=== PATIENT | male | born 1960 | race Caucasian/White ===

== ENCOUNTER 2018-06-26 15:53 | Emergency (ER) | payer SELFPAY ==
[2018-06-26 15:54] VITALS: BP 170/94; PULSE 96; RESP 16; TEMP 37.2; O2SAT 95; BMI 46.7
--- NOTE | 2018-06-26 16:12 | ED.VISSUMM ---
- ER Visit Summary Date of Service: 06/26/18 Chief Complaint: Dysuria History of Present Illness: The patient is a 57 M presenting with dysuria. Patient states his symptoms started 2-3 days ago. He has dysuria, urgency, frequency. He denies incontinence. He denies hematuria. Denies back pain, numbness or weakness. He has mild suprapubic abdominal pain. He went to urgent care today and was sent to the ED for further evaluation. Physical Examination: Vitals are stable. Temperature 99. Alert no acute distress. HEENT exam is unremarkable. Neck is supple. Lungs are clear and equal bilaterally. Heart is regular rate and rhythm. Abdomen is soft nontender nondistended. No rebound or guarding. Back: Nontender Extremities are unremarkable. Skin is warm and dry. No focal neurologic deficit. Remainder of exam is unremarkable. Emergency Department Course and Treatment: CBC shows white count 16.0. Chemistries show glucose 374. Patient admits to noncompliant diet today. Urinalysis shows 5-10 white blood cells, positive leukocytes and nitrites. He is advised to follow a diabetic diet. He is given a prescription for Keflex. Urine culture was sent. He is advised to follow-up with his primary care physician. Advised signs and symptoms for which to return to the emergency department. Disposition: Discharge home Impression: UTI This note was generated with myseekit dictation software. It may contain incorrect words, spelling, and punctuation that were not noted in review of the chart prior to signing ED Disposition - Plan for ED Patient: Chief Complaint: Complaint Instructions: ED UTI Cystitis Male Prescriptions: Cephalexin [Keflex] 500 mg PO BID #14 capsule Referrals: Austyn Mcdonough [Primary Care Provider] -
[2018-06-26 16:15] LABS: Mucous, Urine 0 SEEN /hpf (<or=2+)
[2018-06-26 16:18] LABS: Color, Urine Yellow (Yellow); Glucose, Dipstick 1000 mg/dl (Normal); Ketone-Dipstick 5 mg/dl (Negative); Leukocyte Esterase-Dipstick 25 /ul (Negative); Nitrite-Dipstick Positive (Negative); Occult Blood-Urine 50 /ul (Negative); Protein-Dipstick 30 mg/dl (Negative); Specific Gravity, Urine 1.015 (1.002-1.030); Urine Bilirubin Dipstick Negative (Negative); Urine Clarity Cloudy (Clear); Urine Urobilinogen 1 mg/dl (Normal)
[2018-06-26 16:34] LABS: Absolute Neutrophil Count 12.9 X10^3/uL (2.0-7.7); Basophil# 0.03 X10^3/uL; Basophil% 0.2 % (0-1); Eosinophil# 0.11 X10^3/uL; Eosinophils% 0.7 % (0-5); Hematocrit 37.9 % (40-54); Hemoglobin 12.5 g/dl (13.0-16.5); Lymphocyte % 12.5 % (19-41); Mean Corpuscular Hgb 27.7 pg (27.0-32.0); Monocyte# 0.97 X10^3/uL; Monocyte% 6.1 % (0-10); Neutrophil # 12.85 X10^3/uL (2.7-7.7); Neutrophil % 80.4 % (47-70); Platelet Count 263 K/mm3 (150-450); RBC Distribution Width CV 14.8 % (11.6-14.6); RBC Distribution Width SD 45.4 fl (35.1-43.9); Red Blood Count 4.51 M/mm3 (4.6-6.2)
[2018-06-26 16:38] LABS: POSITIVE COUNT NO; POSITIVE DIFFERENTIAL NO; POSITIVE MORPHOLOGY NO
[2018-06-26 16:40] LABS: Squamous Epithelial Cells - UA 0-5 SEEN /hpf (0-5)
[2018-06-26 16:41] LABS: Bacteria 2+ /hpf (None Seen); Red Blood Cells-Urine 0-5 SEEN /hpf (0-5)
[2018-06-26 16:42] LABS: White Blood Cells 5-10 SEEN /hpf (0-5)
[2018-06-26 16:48] LABS: Anion Gap 6 (5-15); BUN 10 mg/dL (7-18); BUN/Creat Ratio 10.2 RATIO (10-20); Calcium,Total 8.6 mg/dL (8.5-10.1); Chloride 97 mmol/L (98-107); Creatinine, Serum 0.98 mg/dL (0.70-1.30); EST Glomerular Filtration Rate 84 mL/min (>60); Est Glom Filt Rate - Afr Amer 102 mL/min (>60); Estimated Creatinine Clearance 87.94 ml/min; Glucose 374 mg/dL (74-106); Potassium 3.3 mmol/L (3.5-5.1); Sodium Level 135 mmol/L (136-145)
--- NOTE | 2018-06-26 16:57 | ED.DEP ---
ED Disposition - Plan for ED Patient: Chief Complaint: Complaint Instructions: ED UTI Cystitis Male Prescriptions: Cephalexin [Keflex] 500 mg PO BID #14 capsule Referrals: Austyn Mcdonough [Primary Care Provider] -
[2018-06-26 17:05] VITALS: BP 162/80; PULSE 85; RESP 14; O2SAT 98
[2018-06-26] MEDS: Cephalexin 250 MG Capsule 500 MG PO (17:10)
== END 2018-06-26 17:12 | disposition home or self-care (01) ==
PROVIDERS: Emergency Provider Emergency Medicine; Family Provider Student in an Organized Health Care Education/Training Program; PCP Student in an Organized Health Care Education/Training Program
DX: N39.0 Urinary tract infection, site not specified (principal); E11.9 Type 2 diabetes mellitus without complications; I10 Essential (primary) hypertension; Z91.11 Patient's noncompliance with dietary regimen; Z72.0 Tobacco use
CPT/HCPCS: 80048; 81001; 85025; 87077; 87086; 87088; 87186; 99284; A4216

== ENCOUNTER 2025-01-01 04:37 | Inpatient (IN) | payer SELFPAY ==
[2025-01-01] VITALS (15 sets, daily range): BP systolic 163–198; BP diastolic 71–92; PULSE 73–108; RESP 20–36; TEMP 36.8–37.9; O2SAT 82–96; BMI 58.6
[2025-01-01 05:10] LABS: Absolute Lymphocyte Count 0.83 X10^3/uL (0.83-4.51); Absolute Neutrophil Count 14.2 X10^3/uL (2.0-7.7); Basophil# 0.08 X10^3/uL; Basophil% 0.5 % (0-1); Eosinophil# 0.03 X10^3/uL; Eosinophils% 0.2 % (0-5); Hematocrit 41.8 % (40-54); Hemoglobin 13.7 g/dL (13.0-16.5); Lymphocyte # 0.83 X10^3/ul (0.83-4.51); Mean Corp Hgb Conc 32.8 g/dL (32-36); Mean Corpuscular Hgb 27.5 pg (27.0-32.0); Mean Corpuscular Volume 83.8 fL (80-94); Mean Platelet Vol. 10.2 fl (6.2-12.0); Monocyte# 1.27 X10^3/uL; Monocyte% 7.7 % (0-10); NRBC Flagged by Analyzer 0 % (0-5); Neutrophil # 14.15 X10^3/uL (2.7-7.7); Neutrophil % 86.1 % (47-70); Platelet Count 317 K/mm3 (150-450); RBC Distribution Width CV 14.9 % (11.6-14.6); RBC Distribution Width SD 45.2 fl (35.1-43.9); Red Blood Count 4.99 M/mm3 (4.6-6.2); White Blood Count 16.5 K/mm3 (4.4-11.0)
[2025-01-01] MEDS: Acetaminophen 500 MG Tablet 1000 MG PO (05:11)
[2025-01-01] MEDS: MethylPREDNISolone 125 MG/2 ML Vial IV (05:11)
[2025-01-01] MEDS: Ipratropium/Albuterol Sulfate 3 ML AMPUL.NEB INHALATION ×4 (05:18→20:10)
[2025-01-01] MEDS: Albuterol 2.5 MG/3 ML VIAL.NEB. INHALATION (05:18)
[2025-01-01 05:25] LABS: Anion Gap 10 (5-15); BUN 11 mg/dL (7-18); BUN/Creat Ratio 13.3 RATIO (10-20); Calcium,Total 9.3 mg/dL (8.5-10.1); Chloride 94 mmol/L (98-107); Creatinine, Serum 0.83 mg/dL (0.70-1.30); EST Glomerular Filtration Rate 100 mL/min (>60); Est Glom Filt Rate - Afr Amer 121 mL/min (>60); Glucose 320 mg/dL (74-106); Magnesium 1.8 mg/dL (1.6-2.6); Potassium 3.1 mmol/L (3.5-5.1); Sodium Level 134 mmol/L (136-145)
--- NOTE | 2025-01-01 05:34 | RAD_ITS ---
PROCEDURE: Portable upright chest radiograph, one view REASON FOR EXAM: Dyspnea. Shortness of breath, dizziness, cough TECHNIQUE: A single AP upright chest radiograph was obtained. COMPARISON: None. FINDINGS: The cardiomediastinal silhouette is within normal limits. Bones are osteopenic. [id number] degenerative changes of the glenohumeral joints. No pneumothorax, focal airspace consolidation, or pleural effusion. Some slight fullness of the right hilum may be questionable vague opacity at the left lung base. There is some subjective fullness of the right hilum. RAD/Chest 1 View (Portable) IMPRESSION: Questionable vague opacity at the left lung base, which could be due to develop ing pneumonia or artifactual from superimposition of the cardiac silhouette. There is also subjective fullness of the right hilu m. Recommend a follow-up PA and lateral chest radiograph in 1 week. Reading Location: [facility]
--- NOTE | 2025-01-01 05:40 | EX.ED.DYSGE1 ---
HPI History of Present Illness Chief Complaint: Shortness of Breath Informant: patient, spouse/S.O. and EMS Narrative Narrative: Patient is a 64-year-old male with past medical history of COPD but no need for supplemental oxygen at baseline as well as hypertension and qxy-kbafdxb-kaolakeqm diabetes. He states for approximately 3 days he has been having congestion drainage and cough. He does report multiple sick contacts at home with similar symptoms. He states this morning his shortness of breath worsened and secondary to this EMS was called. EMS reports when they arrived patient was awake and alert but had increased work of breathing and his pulse ox was approximately 80% on room air. [facility] Medical History Sleep apnea Hypertension Diabetes Home Medications ?Medication ?Instructions ?Recorded ?Last Taken ?Type alfuzosin 10 mg tablet,extended 10 mg PO QHS 01/01/25 Unknown History release 24 hr amlodipine 5 mg tablet 5 mg PO DAILY 01/01/25 Unknown History carvedilol 6.25 mg tablet 6.25 mg PO BID 01/01/25 Unknown History fluticasone fur. 100 mcg-umeclid 1 inh inhalation DAILY 01/01/25 Unknown History 62.5 mcg-vilant 25 mcg inhalat.powder (Trelegy Ellipta) furosemide 20 mg tablet 20 mg PO DAILY 01/01/25 Unknown History lisinopril 20 1 tab PO BID 01/01/25 Unknown History mg-hydrochlorothiazide 12.5 mg tablet metformin 1,000 mg tablet 1,000 mg PO BID 01/01/25 Unknown History potassium 20 mg chewable tablet 10 mg PO DAILY 01/01/25 Unknown History Allergy/AdvReac Type Severity Reaction Status Date / Time No Known Allergies Allergy Verified 01/01/25 04:38 Social History Smoking Status: Current every day smoker tobacco type: cigarettes ROS ROS ED Constitutional Constitutional ED: Reports chills and fever(s) ENT ENT ED: Reports ear pain bilateral, rhinorrhea and sore throat Cardiovascular Cardiovascular: Denies chest pain or palpitations Respiratory/Chest Respiratory/Chest: Reports cough and dyspnea Gastrointestinal Gastrointestinal: Denies abdominal pain, diarrhea, nausea or vomiting Genitourinary Genitourinary ED: Denies dysuria Musculoskeletal Musculoskeletal: Reports myalgias Integumentary Denies rash Neurologic Neurologic: Denies headache(s) Hematologic/Lymphatic Hematologic/Lymphatic: Denies easy bleeding or easy bruising Allergic/Immunologic Allergic/Immunologic ED: Denies mouth swelling or tongue swelling EXAM Physical Exam Const Vital Signs: 01/01/25 04:37 01/01/25 04:38 01/01/25 04:41 Temperature 100.3 F H 100.3 F H Temperature Source Oral Oral Pulse Rate 108 H 105 H Respiratory Rate 28 H 26 H Respiratory Pattern Blood Pressure 196/92 H 196/92 H Blood Pressure Mean 126 126 Pulse Ox 82 90 90 Oxygen Delivery Method Room Air Nasal Cannula Nasal Cannula Oxygen Flow Rate (L/min) 4 4 01/01/25 04:51 01/01/25 05:18 01/01/25 05:18 Temperature Temperature Source Pulse Rate 98 Respiratory Rate 24 H Respiratory Pattern Tachypnea Blood Pressure Blood Pressure Mean Pulse Ox 93 Oxygen Delivery Method Nasal Cannula Nasal Cannula Oxygen Flow Rate (L/min) 2 3 01/01/25 06:05 01/01/25 06:05 01/01/25 06:36 Temperature 99.6 F H 99.6 F H 99.6 F H Temperature Source Oral Oral Pulse Rate 100 100 102 H Respiratory Rate 36 H 35 H 28 H Respiratory Pattern Blood Pressure 191/83 H 191/83 H 179/86 H Blood Pressure Mean 119 119 117 Pulse Ox 89 89 96 Oxygen Delivery Method Nasal Cannula Nasal Cannula Oxygen Flow Rate (L/min) 4 4 01/01/25 07:15 Temperature 99.1 F Temperature Source Oral Pulse Rate 95 Respiratory Rate 24 H Respiratory Pattern Blood Pressure 182/88 H Blood Pressure Mean 119 Pulse Ox 93 Oxygen Delivery Method Nasal Cannula Oxygen Flow Rate (L/min) Positive well nourished, well developed and obese General Appearance ED: well developed; Negative for pallor Nutritional Appearance: obese HEENT HEENT Narrative: Bilateral TMs are retracted but show no secondary changes to suggest infection Nasal mucosa is hyperemic and boggy There is cobblestoning noted in posterior pharynx consistent with sinus drainage but no airway edema or compromise Eyes PERRL and EOMs intact bilaterally General Eye ED: Negative for scleral icterus Neck supple and no JVD Resp Resp Narrative: Patient is in mild respiratory distress with tachypnea and accessory muscle use Breath sounds are diminished throughout with diffuse inspiratory and expiratory wheezing Cardio regular rhythm Rate: tachycardic and other Other Details: Tachycardic rate with regular rhythm Radial and carotid pulses are equal and symmetric Extremity normal to inspection Extremity Narrative: No pitting edema Negative Homans' sign bilaterally Neuro oriented x3, CN's II-XII intact bilaterally and no sensory deficits noted Sensorium / Orientation: alert Motor Exam: strength 5/5 throughout Psych mental status grossly normal Skin no rashes or lesions noted General Skin Exam: Negative for jaundice or pallor MDM MDM MDM Narrative Medical decision making narrative: EMS reported they arrived at the patient's house and his pulse ox was 80% on room air. Patient has a history of COPD but no need for supplemental oxygen at baseline. With his reported sick contacts there is high likelihood this is influenza versus COVID versus RSV. Patient may also have potential pneumonia or pneumothorax causing his symptoms. Secondary to this basic blood work was obtained as well as chest x-ray and viral swab. Viral swab was positive for influenza. Chest x-ray question developing pneumonia but at this is truly present is most likely viral in nature based on his influenza status. Therefore do not feel need for antibiotics at this time the patient will be started on Tamiflu secondary to the influenza diagnosis. The patient is requiring 3 to 4 L nasal cannula oxygen to keep his sats greater than 90%. As he does not have oxygen at home it is not safe for him to be discharged and therefore the hospitalist was contacted and agrees to accept the patient for continued care. History & Record Review Discussion w/independent historian: Patient Lab Data Attestation: I reviewed the patient's lab results. Labs: Laboratory Results - last 24 hr 01/01/25 04:50 WBC 16.5 H RBC 4.99 Hgb 13.7 Hct 41.8 MCV 83.8 MCH 27.5 MCHC 32.8 RDW Std Deviation 45.2 H RDW Coeff of Silvano 14.9 H Plt Count 317 MPV 10.2 Immature Gran % (Auto) 0.500 Neut % (Auto) 86.1 H Lymph % (Auto) 5.0 L [place] % (Auto) 7.7 Eos % (Auto) 0.2 Baso % (Auto) 0.5 Absolute Neuts (auto) 14.2 H Absolute Lymphs (auto) 0.83 Nucleated RBC % 0 Sodium 134 L Potassium 3.1 L Chloride 94 L Carbon Dioxide 31.0 Anion Gap 10 BUN 11 Creatinine 0.83 Estim Creat Clear Calc 149.40 Est GFR (MDRD) Af Amer 121 Est GFR (MDRD) Non-Af 100 BUN/Creatinine Ratio 13.3 Glucose 320 H Calcium 9.3 Magnesium 1.8 B-Natriuretic Peptide 80.6 Radiography Diagnostic Testing: Clinical Impression(s) from Imaging Studies Chest X-Ray 01/01/25 05:34 IMPRESSION: Questionable vague opacity at the left lung base, which could be due to developing pneumonia or artifactual from superimposition of the cardiac silhouette. There is also subjective fullness of the right hilum. Recommend a follow-up PA and lateral chest radiograph in 1 week. Reading Location: [facility] Chest x-ray as interpreted by the emergency medicine physician reveals vague opacities in the bilateral lung bases consistent with atelectasis without obvious infiltrate or pneumothorax Management Discussion w/another healthcare provider: Hospitalist Discharge Plan Triage Chief Complaint: Shortness of Breath ED Provider: Chago Balderas Dx/Rx/DC Orders Clinical Impression: Influenza A, COPD with acute exacerbation, Hypoxia, Hypertension, Type 2 diabetes mellitus Prescriptions: No Action carvedilol 6.25 mg tablet 6.25 mg PO BID amlodipine 5 mg tablet 5 mg PO DAILY furosemide 20 mg tablet 20 mg PO DAILY potassium 20 mg tablet,chewable 10 mg PO DAILY alfuzosin 10 mg tablet extended release 24 hr 10 mg PO QHS metformin 1,000 mg tablet 1,000 mg PO BID lisinopril-hydrochlorothiazide 20-12.5 mg tablet 1 tab PO BID Trelegy Ellipta 100-62.5-25 mcg blister with device 1 inh inhalation DAILY Primary Care Provider: Austyn Mcdonough Referrals: Austyn Mcdonough DO [Primary Care Provider] - Print Language: [place] Disposition Disposition: Acute Care Hospital [facility]
[2025-01-01 05:44] LABS: BNP,B-Type NATRIURETIC PEPTIDE 80.6 pg/mL (0-100)
[2025-01-01] MEDS: Oseltamivir Phosphate 75 MG Capsule PO ×2 (07:29→21:24)
--- NOTE | 2025-01-01 07:35 | PCM.HP.STD ---
[facility] - General General Date of Service: 01/01/25 Chief Complaint: shortness of breath. [facility] Narrative SAUL DIETRICH, is a 64 M who presents with shortness of breath. Patient been sick for about 2 to 3 days prior to arrival. He had checked his oxygen at home and it was noted to be 80% and so presented to the emergency room. On emergency room he underwent a workup that showed he had influenza A. He was placed on oxygen and received bronchodilators as well as methylprednisolone. With him having influenza he did receive start oseltamavir. He is feeling better at this time. He does have a history of COPD and does actively smoke. But not normally on oxygen at home. [facility] Medical History Sleep apnea Hypertension Diabetes Home Medications ?Medication ?Instructions ?Recorded ?Last Taken ?Type alfuzosin 10 mg tablet,extended 10 mg PO QHS 01/01/25 Unknown History release 24 hr amlodipine 5 mg tablet 5 mg PO DAILY 01/01/25 Unknown History carvedilol 6.25 mg tablet 6.25 mg PO BID 01/01/25 Unknown History fluticasone fur. 100 mcg-umeclid 1 inh inhalation DAILY 01/01/25 Unknown History 62.5 mcg-vilant 25 mcg inhalat.powder (Trelegy Ellipta) furosemide 20 mg tablet 20 mg PO DAILY 01/01/25 Unknown History lisinopril 20 1 tab PO BID 01/01/25 Unknown History mg-hydrochlorothiazide 12.5 mg tablet metformin 1,000 mg tablet 1,000 mg PO BID 01/01/25 Unknown History potassium 20 mg chewable tablet 10 mg PO DAILY 01/01/25 Unknown History Allergy/AdvReac Type Severity Reaction Status Date / Time No Known Allergies Allergy Verified 01/01/25 04:38 Social History (Updated 01/01/25 @ 07:[address] Enrique Metcalf DO) Smoking Status: Current every day smoker tobacco type: cigarettes substance use type: does not use Vital Signs Vital Signs Vital Signs: 01/01/25 04:37 01/01/25 04:38 01/01/25 04:41 Temperature 37.9 C H 37.9 C H Temperature Source Oral Oral Pulse Rate 108 H 105 H Respiratory Rate 28 H 26 H Respiratory Pattern Blood Pressure 196/92 H 196/92 H Blood Pressure Mean 126 126 Pulse Ox 82 90 90 Oxygen Delivery Method Room Air Nasal Cannula Nasal Cannula Oxygen Flow Rate (L/min) 4 4 01/01/25 04:51 01/01/25 05:18 01/01/25 05:18 Temperature Temperature Source Pulse Rate 98 Respiratory Rate 24 H Respiratory Pattern Tachypnea Blood Pressure Blood Pressure Mean Pulse Ox 93 Oxygen Delivery Method Nasal Cannula Nasal Cannula Oxygen Flow Rate (L/min) 2 3 01/01/25 06:05 01/01/25 06:05 01/01/25 06:36 Temperature 37.6 C H 37.6 C H 37.6 C H Temperature Source Oral Oral Pulse Rate 100 100 102 H Respiratory Rate 36 H 35 H 28 H Respiratory Pattern Blood Pressure 191/83 H 191/83 H 179/86 H Blood Pressure Mean 119 119 117 Pulse Ox 89 89 96 Oxygen Delivery Method Nasal Cannula Nasal Cannula Oxygen Flow Rate (L/min) 4 4 01/01/25 07:15 Temperature 37.3 C Temperature Source Oral Pulse Rate 95 Respiratory Rate 24 H Respiratory Pattern Blood Pressure 182/88 H Blood Pressure Mean 119 Pulse Ox 93 Oxygen Delivery Method Nasal Cannula Oxygen Flow Rate (L/min) Weight Weight: 180.1 kg Body Mass Index (BMI) 58.6 Physical Exam Narrative - Physical Exam General: Alert, Oriented x3, Cooperative HEENT: Atraumatic, PERRLA, EOMI, Normocephalic Oral: Moist Mucosa, No Gingival or Mucosal Lesions/ Ulcerations Neck: Supple, No JVD, Negative Carotid Bruits Lungs: Diminished breath sounds throughout. Faint end expiratory wheezes. Cardiovascular: Regular rate, Normal S1, Normal S2, No murmurs Abdomen: Bowel Sounds Present, Soft, Non Tender, Non-Distended, No Hepato-splenomegaly Extremities: No clubbing, No cyanosis, No edema, Capillary Refill Less than 3 Seconds Skin: No rashes, No breakdown Musculoskeletal: No Tenderness to Palpation of Joints or Extremities Neurological: Neuro grossly intact Psych/Mental Status: Normal Affect, Appropriate Results Lab / Micro Data Attestation: I reviewed the patient's lab results. 01/01/25 04:50 01/01/25 04:50 Labs: Laboratory Results - last 24 hr 01/01/25 04:50: WBC 16.5 H, RBC 4.99, Hgb 13.7, Hct 41.8, MCV 83.8, MCH 27.5, MCHC 32.8, RDW Std Deviation 45.2 H, RDW Coeff of Silvano 14.9 H, Plt Count 317, MPV 10.2, Immature Gran % (Auto) 0.500, Neut % (Auto) 86.1 H, Lymph % (Auto) 5.0 L, [place] % (Auto) 7.7, Eos % (Auto) 0.2, Baso % (Auto) 0.5, Absolute Neuts (auto) 14.2 H, Absolute Lymphs (auto) 0.83, Nucleated RBC % 0, Sodium 134 L, Potassium 3.1 L, Chloride 94 L, Carbon Dioxide 31.0, Anion Gap 10, BUN 11, Creatinine 0.83, Estim Creat Clear Calc 149.40, Est GFR (MDRD) Af Amer 121, Est GFR (MDRD) Non-Af 100, BUN/Creatinine Ratio 13.3, Glucose 320 H, Calcium 9.3, Magnesium 1.8, B-Natriuretic Peptide 80.6 Micro: Microbiology 01/01/25 04:50 Mucosa - Nose SARS-CoV-2, Influenza & RSV (PCR) - Final Influenzae A Imaging Radiology Impression Chest X-Ray 01/01/25 05:34 IMPRESSION: Questionable vague opacity at the left lung base, which could be due to developing pneumonia or artifactual from superimposition of the cardiac silhouette. There is also subjective fullness of the right hilum. Recommend a follow-up PA and lateral chest radiograph in 1 week. Reading [facility] Assessment & Plan Assessment/Plan (1) COPD exacerbation: PLAN: Secondary to influenza A Continue bronchodilators and methylprednisolone. Wean oxygen as tolerated (2) Influenza A: PLAN: Patient received oseltamavir in the emergency room. Will continue on the floor. PLAN: Plan Diabetes mellitus type 2: Nondistended. Continue with metformin. Sliding scale insulin. Check an A1c. Obesity class III: Complicates care and recovery. VTE prophylaxis with enoxaparin. CODE STATUS: Addressed with patient. Patient wishes to be full code Charges/Coding Visit Charges Inpatient E&M: 78431 Init Hosp L3
[2025-01-01] MEDS: Carvedilol 6.25 MG Tablet PO ×2 (11:00→17:01)
[2025-01-01] MEDS: Furosemide 20 MG Tablet PO (11:02)
[2025-01-01] MEDS: Potassium Chloride Oral Tablet 10 MEQ PO (11:02)
[2025-01-01] MEDS: metFORMIN HCl 1,000 MG Tablet 1000 MG PO ×2 (11:02→21:23)
[2025-01-01] MEDS: amLODIPine 5 MG Tablet PO (11:03)
[2025-01-01] MEDS: Enoxaparin 40 MG/0.4 ML Syringe SC ×2 (11:03→21:23)
[2025-01-01] MEDS: Insulin Lispro 100 UNIT/ML INSULN.PEN SC ×3 (12:00→22:47)
[2025-01-01 12:22] LABS: Bedside Glucose 439 mg/dL (74-106)
[2025-01-01] MEDS: 0.9% Saline Lock 10 ML Syringe IV (13:29)
[2025-01-01] MEDS: Tamsulosin HCl 0.4 MG Capsule PO (17:01)
[2025-01-01 17:27] LABS: Bedside Glucose 487 mg/dL (74-106)
--- NOTE | 2025-01-01 19:50 | NURSING ---
This nurse to patients room with pharmacist in charge, rental car ferry driver just took a call from patients patient requesting a breathing treatment states he called out at 6pm 630 and 7pm for a treatment. rental car ferry driver called respiratory. This nurse explained we just got here at 7pm and got out of report at 730 no one instructed us he needed a breathing treatment. Patient upset said he has called several times. Patient also sitting up at computer chair with no 02 in his nose. I placed back on 02 and instructed how important it is to keep it on when he is ambulating in the room. He states he took it off over by the window and that was his fault. Respiratory on their way up to give patient a treatment. spo2 88% when entering the room 93% on 5l n/c now.
[2025-01-01] MEDS: LISINOPRIL PO (20:22)
[2025-01-01] MEDS: HYDROCHLOROTHIAZIDE PO (20:22)
[2025-01-01] MEDS: Insulin Glargine-YFGN 100 UNIT/ML Pen 30 UNIT SC (22:48)
[2025-01-01 23:30] LABS: Bedside Glucose 479 mg/dL (74-106)
[2025-01-01 23:43] LABS: Glucose 530 mg/dL (74-106)
[2025-01-02] VITALS (13 sets, daily range): BP systolic 170–185; BP diastolic 90–104; PULSE 92–101; RESP 16–28; TEMP 36.6–37.2; O2SAT 93–95
[2025-01-02] MEDS: Ipratropium/Albuterol Sulfate 3 ML AMPUL.NEB INHALATION ×6 (00:04→20:30)
[2025-01-02 06:12] LABS: Absolute Lymphocyte Count 0.87 X10^3/uL (0.83-4.51); Absolute Neutrophil Count 14.3 X10^3/uL (2.0-7.7); Basophil# 0.03 X10^3/uL; Basophil% 0.2 % (0-1); Eosinophil# 1.37 X10^3/uL; Eosinophils% 7.9 % (0-5); Hematocrit 41.8 % (40-54); Hemoglobin 13.4 g/dL (13.0-16.5); Lymphocyte # 0.87 X10^3/ul (0.83-4.51); Mean Corp Hgb Conc 32.1 g/dL (32-36); Mean Corpuscular Hgb 26.9 pg (27.0-32.0); Mean Corpuscular Volume 83.9 fL (80-94); Mean Platelet Vol. 10.6 fl (6.2-12.0); Monocyte# 0.71 X10^3/uL; Monocyte% 4.1 % (0-10); NRBC Flagged by Analyzer 0 % (0-5); Neutrophil # 14.28 X10^3/uL (2.7-7.7); Neutrophil % 81.7 % (47-70); POSITIVE MORPHOLOGY YES; Platelet Count 400 K/mm3 (150-450); RBC Distribution Width CV 15.2 % (11.6-14.6); RBC Distribution Width SD 45.9 fl (35.1-43.9); Red Blood Count 4.98 M/mm3 (4.6-6.2); White Blood Count 17.5 K/mm3 (4.4-11.0)
[2025-01-02 06:56] LABS: Anion Gap 12 (5-15); BUN 26 mg/dL (7-18); BUN/Creat Ratio 24.3 RATIO (10-20); Calcium,Total 9.3 mg/dL (8.5-10.1); Chloride 95 mmol/L (98-107); Creatinine, Serum 1.07 mg/dL (0.70-1.30); EST Glomerular Filtration Rate 74 mL/min (>60); Est Glom Filt Rate - Afr Amer 90 mL/min (>60); Estimated Creatinine Clearance 115.89 ml/min; Glucose 487 mg/dL (74-106); Potassium 3.6 mmol/L (3.5-5.1); Sodium Level 132 mmol/L (136-145)
[2025-01-02] MEDS: Insulin Lispro 100 UNIT/ML INSULN.PEN SC ×4 (07:00→21:51)
[2025-01-02 07:08] LABS: Bedside Glucose 499 mg/dL (74-106)
[2025-01-02 07:36] LABS: Differential Indicated SCAN CRITERIA MET
[2025-01-02] MEDS: Insulin Lispro 100 UNIT/ML INSULN.PEN 10 UNIT SC ×2 (08:23→11:02)
[2025-01-02] MEDS: Insulin Glargine-YFGN 100 UNIT/ML Pen 20 UNIT SC ×2 (08:25→21:54)
[2025-01-02] MEDS: Carvedilol 6.25 MG Tablet PO ×2 (08:29→17:50)
[2025-01-02] MEDS: Insulin Lispro 100 UNIT/ML INSULN.PEN 15 UNIT SC ×2 (09:15→17:47)
[2025-01-02 09:17] LABS: Hemoglobin A1c 11.6 % (3.8-5.6)
--- NOTE | 2025-01-02 10:11 | CASEMGMT ---
Addendum entered by Teodora Levy 01/02/25 10:22: FERNY AGUAYO discussed possible O2 needs at time of DC, provided list of local DME providers. Pt chose [facility] as provider of choice. Original Note: FERNY AGUAYO Assessment: Face to Face with pt for initial transition planning/care coordination assessment. FERNY AGUAYO introduced self and role at [facility], pt voices understanding and consents to assessment. Pt is A&O x4 and answers all questions appropriately at this time. Pt is sitting up in bed in no distress. Care providers, pharmacy, and demographics verified/updated. Strata: 2 Admitting Dx: COPD exacerbation PCP: [facility] Specialists: [facility] Preferred Pharmacy: [facility] Insurance: Self Pay Prescription Benefit: yes LNOK: [place], Living Arrangements: Pt lives with , daughter and grandchild in a rancho home with 3 steps to enter. ADLs: Pt is I with ADLs, assistance with cleaning. Transportation: Pt drives self and denies concerns with transportation. DME: [employer] and supplies. HHC/SNF: Denies Hx of. Pt states no concerns with going home at time of dc. Pt states no further concerns/needs. CM to follow. Advised pt to ask CM if any further question/concerns/needs arise, voices understanding. Pt Goal: Home Plan: Home, follow for O2 needs. Nicolette ISAACS CM
[2025-01-02] MEDS: Potassium Chloride Oral Tablet 10 MEQ PO (10:50)
[2025-01-02] MEDS: Furosemide 20 MG Tablet PO (10:51)
[2025-01-02] MEDS: Enoxaparin 40 MG/0.4 ML Syringe SC ×2 (10:51→21:42)
[2025-01-02] MEDS: amLODIPine 5 MG Tablet PO (10:51)
[2025-01-02] MEDS: Oseltamivir Phosphate 75 MG Capsule PO ×2 (10:51→21:45)
[2025-01-02] MEDS: LISINOPRIL PO ×2 (10:52→21:42)
[2025-01-02] MEDS: HYDROCHLOROTHIAZIDE PO ×2 (10:52→21:42)
[2025-01-02 11:25] LABS: Bedside Glucose 439 mg/dL (74-106)
--- NOTE | 2025-01-02 12:21 | PCM.PN.HOSP ---
Reason for Visit Reason for Visit: Diagnoses Influenza due to other identified influenza virus with other respiratory manifestations (01/01/25) Chronic obstructive pulmonary disease with (acute) exacerbation (01/01/25) Subjective Subjective Saw patient at bedside this morning. Patient was mildly fatigued appearing but otherwise sitting up comfortably at the edge of the bed, conversing normally and in no acute distress. He was breathing comfortably on 6 L nasal cannula. Noted that he still felt wheezing and short of breath with minimal exertion. Does feel moderately improved from admission. Has been able to cough some sputum up which is better than previous days. Denies any fevers or chills. No other new concerns this morning. Objective Data Objective Data Vital Signs: Vital Signs Temp Pulse Resp BP Pulse Ox O2 Del Method O2 Flow Rate 98.4 F 101 H 24 H 185/99 H 93 Nasal Cannula 5 01/02/25 08:13 01/02/25 11:06 01/02/25 11:06 01/02/25 08:13 01/02/25 08:13 01/02/25 08:18 01/02/25 08:18 Oxygen Flow Rate (L/min) 5 Oxygen Delivery Method Nasal Cannula Weight: 180.1 kg Body Mass Index (BMI) 58.6 Intake & Output: Intake and Output for Last 24 Hours 12/31/24 01/01/25 01/02/25 23:59 23:59 23:59 Intake Total 780 / 1230 800 / 800 Balance 780 / 1230 800 / 800 Lab / Micro Data 01/02/25 05:35 01/02/25 05:35 Labs: Laboratory Results - last 24 hr 01/01/25 11:59: POC Glucose 439 H 01/01/25 16:18: POC Glucose 487 H* 01/01/25 21:27: POC Glucose 479 H* 01/01/25 22:48: Glucose 530 H* 01/02/25 05:35: WBC 17.5 H, RBC 4.98, Hgb 13.4, Hct 41.8, MCV 83.9, MCH 26.9 L, MCHC 32.1, RDW Std Deviation 45.9 H, RDW Coeff of Silvano 15.2 H, Plt Count 400, MPV 10.6, Immature Gran % (Auto) 1.100 H, Neut % (Auto) 81.7 H, Lymph % (Auto) 5.0 L, [place] % (Auto) 4.1, Eos % (Auto) 7.9 H, Baso % (Auto) 0.2, Absolute Neuts (auto) 14.3 H, Absolute Lymphs (auto) 0.87, Nucleated RBC % 0, Sodium 132 L, Potassium 3.6, Chloride 95 L, Carbon Dioxide 26.0, Anion Gap 12, BUN 26 H, Creatinine 1.07, Estim Creat Clear Calc 115.89, Est GFR (MDRD) Af Amer 90, Est GFR (MDRD) Non-Af 74, BUN/Creatinine Ratio 24.3 H, Glucose 487 H*, Hemoglobin A1c 11.6 H, Calcium 9.3 01/02/25 05:51: POC Glucose 499 H* 01/02/25 11:00: POC Glucose 439 H Micro: Microbiology 01/01/25 04:50 Mucosa - Nose SARS-CoV-2, Influenza & RSV (PCR) - Final Influenzae A Physical Exam Const alert, oriented x3 and no apparent distress Constitutional Narrative: Upper middle-aged male, class III obesity, mildly fatigued appearing but otherwise sitting up at edge of bed comfortably, conversing normally, in no acute distress. General Appearance: cooperative and comfortable HEENT normocephalic, head/scalp atraumatic, hearing grossly normal bilaterally, nasal mucous membranes and turbinates normal and moist oral mucous membranes Eyes PERRL, EOMs intact bilaterally and conjunctivae normal Neck full ROM Chest inspection of chest normal Resp normal respiratory effort and no use of accessory muscles Resp Narrative: Breathing comfortably on 6 L nasal cannula at rest. Moderately diminished breath sounds with moderate upper airway wheezing noted bilaterally. No crackles noted. Cardio regular rate, regular rhythm, no murmurs and peripheral pulses 2+ throughout GI normal to inspection, nondistended, normoactive bowel sounds, soft to palpation, non-tender and non-distended Back/Spine normal ROM Extremity normal to inspection, full ROM and no pedal edema Skin no rashes or lesions noted Neuro moves all extremities and no focal motor deficits Speech: speech normal Motor Exam: strength 5/5 throughout Psych mental status grossly normal Assessment & Plan Assessment/Plan (1) Acute hypoxic respiratory failure: (2) COPD exacerbation: (3) Influenza A: (4) Type 2 diabetes mellitus: PLAN: Plan Patient is a 64-year-old male who presented [facility] ED on 01/01/2025 with worsening shortness of breath. 1. Acute hypoxic respiratory failure secondary to COPD exacerbation due to influenza A infection ? Influenza A positive on admit. History of COPD, not on home O2. Chest x-ray on admit unremarkable. Diffusely wheezy on exam on admit and requiring 6 L nasal cannula to maintain appropriate oxygen saturations. Low concern for secondary bacterial pneumonia. Continue treatment with IV steroids, scheduled DuoNebs and Tamiflu. Wean supplemental oxygen as able. Continue home long-acting inhaler. 2. Poorly controlled type 2 diabetes mellitus ? Blood glucose 500 on admit. A1c 11.6%. Only on home metformin. Blood sugars very elevated since admission especially while on IV steroids. Treating with Lantus 20 units twice daily, Humalog 15 units with meals plus high-dose sliding scale insulin, adjust as needed. 3. Class III obesity ? BMI 58 on admit. Encouraged lifestyle modifications. Complicates hospital course, care and prognosis. 4. Hypertension ? Blood pressure elevated to the 160s to 180s during hospitalization. Continue home amlodipine, Coreg, Lasix, lisinopril, hydrochlorothiazide. IV hydralazine as needed ordered as well. 5. Tobacco use ? Nicotine patch ordered per patient request. Discussed cessation. 6. Suspected VERONICA ? Continue CPAP at night. DVT prophylaxis: Lovenox twice daily CODE STATUS: Full code, verified Expected disposition: Home, TBD Total clinical time spent by myself addressing the patient's medical issues, reviewing all the data, and collaborating with patient's care team: 35 minutes. Charges/Coding Visit Charges Inpatient E&M: 60523 Subs Hosp L2
[2025-01-02] MEDS: 0.9% Saline Lock 10 ML Syringe IV (15:10)
[2025-01-02] MEDS: hydrALAZINE 20 MG/ML Vial 10 MG IV (15:42)
[2025-01-02 16:36] LABS: Bedside Glucose 344 mg/dL (74-106)
[2025-01-02] MEDS: Tamsulosin HCl 0.4 MG Capsule PO (17:50)
[2025-01-02 22:15] LABS: Bedside Glucose 390 mg/dL (74-106)
[2025-01-03] VITALS (10 sets, daily range): BP systolic 155–192; BP diastolic 82–105; PULSE 75–92; RESP 18–24; TEMP 36.7–37; O2SAT 91–96
[2025-01-03] MEDS: Ipratropium/Albuterol Sulfate 3 ML AMPUL.NEB INHALATION ×6 (00:11→23:03)
[2025-01-03 06:36] LABS: Hemoglobin 13.6 g/dL (13.0-16.5); Mean Corp Hgb Conc 31.6 g/dL (32-36); Mean Corpuscular Hgb 26.6 pg (27.0-32.0); Mean Corpuscular Volume 84.1 fL (80-94); Mean Platelet Vol. 10.1 fl (6.2-12.0); Platelet Count 407 K/mm3 (150-450); RBC Distribution Width CV 15.1 % (11.6-14.6); RBC Distribution Width SD 46.3 fl (35.1-43.9); Red Blood Count 5.11 M/mm3 (4.6-6.2); White Blood Count 16.9 K/mm3 (4.4-11.0)
[2025-01-03] MEDS: Insulin Lispro 100 UNIT/ML INSULN.PEN 20 UNIT SC (08:07)
[2025-01-03] MEDS: Insulin Lispro 100 UNIT/ML INSULN.PEN SC ×3 (08:07→21:01)
[2025-01-03] MEDS: Carvedilol 25 MG Tablet PO ×2 (08:07→17:15)
[2025-01-03 08:11] LABS: Bedside Glucose 406 mg/dL (74-106)
[2025-01-03] MEDS: Insulin Glargine-YFGN 100 UNIT/ML Pen 20 UNIT SC (09:51)
[2025-01-03] MEDS: Potassium Chloride Oral Tablet 10 MEQ PO (09:51)
[2025-01-03] MEDS: Enoxaparin 40 MG/0.4 ML Syringe SC ×2 (09:52→20:54)
[2025-01-03] MEDS: Furosemide 40 MG Tablet PO (09:52)
[2025-01-03] MEDS: amLODIPine 5 MG Tablet PO (09:53)
[2025-01-03] MEDS: HYDROCHLOROTHIAZIDE PO ×2 (09:55→20:55)
[2025-01-03] MEDS: Oseltamivir Phosphate 75 MG Capsule PO ×2 (09:55→20:55)
[2025-01-03] MEDS: LISINOPRIL PO ×2 (09:55→20:55)
--- NOTE | 2025-01-03 10:41 | CASEMGMT ---
Addendum entered by Tracy Fry 01/03/25 11:32: [employer] rep, Alejandra, reports that pt is over-income per pt information provided. JESSENIA Sorto Original Note: Social Work- SW met with pt to discuss self pay status. SW introduced self and role. Pt reports he is uncertain if he is over income for [employer] and would like to meet with [employer] product representative. SE completed referral. SW provided printed resources for prescription programs, [employer] card, as well as HCAP form for financial assistance. Pt denies any other needs at this time. SW remains available to follow. JESSENIA Sorto
--- NOTE | 2025-01-03 10:55 | PCM.PN.HOSP ---
Reason for Visit Reason for Visit: Diagnoses Type 2 diabetes mellitus without complications (01/01/25) Influenza due to other identified influenza virus with other respiratory manifestations (01/01/25) Chronic obstructive pulmonary disease with (acute) exacerbation (01/01/25) Acute respiratory failure with hypoxia (01/01/25) Subjective Subjective Saw patient at bedside this morning, present. Patient did appear mild to moderately improved today from yesterday. Better energy level. Does continue to have significant shortness of breath with exertion and wheezing at rest. States the breathing treatments have been helpful for him. No other new concerns today. Objective Data Objective Data Vital Signs: Vital Signs Temp Pulse Resp BP Pulse Ox O2 Del Method O2 Flow Rate 98.2 F 91 18 192/105 H 94 Nasal Cannula 4 01/03/25 07:54 01/03/25 07:54 01/03/25 07:54 01/03/25 07:54 01/03/25 07:54 01/03/25 07:57 01/03/25 07:57 Oxygen Flow Rate (L/min) 4 Oxygen Delivery Method Nasal Cannula Weight: 180.1 kg Body Mass Index (BMI) 58.6 Intake & Output: Intake and Output for Last 24 Hours 01/01/25 01/02/25 01/03/25 23:59 23:59 23:59 Intake Total 780 / 1230 800 / 800 200 / 200 Balance 780 / 1230 800 / 800 200 / 200 Lab / Micro Data 01/03/25 05:10 01/03/25 05:10 Labs: Laboratory Results - last 24 hr 01/02/25 11:00: POC Glucose 439 H 01/02/25 16:17: POC Glucose 344 H 01/02/25 21:50: POC Glucose 390 H 01/03/25 05:10: WBC 16.9 H, RBC 5.11, Hgb 13.6, Hct 43.0, MCV 84.1, MCH 26.6 L, MCHC 31.6 L, RDW Std Deviation 46.3 H, RDW Coeff of Silvano 15.1 H, Plt Count 407, MPV 10.1 01/03/25 07:50: POC Glucose 406 H Micro: Microbiology 01/01/25 04:50 Mucosa - Nose SARS-CoV-2, Influenza & RSV (PCR) - Final Influenzae A Physical Exam Const alert, oriented x3 and no apparent distress Constitutional Narrative: Upper middle-aged male, class III obesity, mildly fatigued appearing but otherwise sitting up at edge of bed comfortably, conversing normally, in no acute distress. Stable. General Appearance: cooperative and comfortable HEENT normocephalic, head/scalp atraumatic, hearing grossly normal bilaterally, nasal mucous membranes and turbinates normal and moist oral mucous membranes Eyes PERRL, EOMs intact bilaterally and conjunctivae normal Neck full ROM Chest inspection of chest normal Resp normal respiratory effort and no use of accessory muscles Resp Narrative: Breathing comfortably on 3 L nasal cannula at rest. Mild to moderate upper airway wheezing noted bilaterally with mild diminished breath sounds, but no crackles noted. Improving. Cardio regular rate, regular rhythm, no murmurs and peripheral pulses 2+ throughout GI normal to inspection, nondistended, normoactive bowel sounds, soft to palpation, non-tender and non-distended Back/Spine normal ROM Extremity normal to inspection, full ROM and no pedal edema Skin no rashes or lesions noted Neuro moves all extremities and no focal motor deficits Speech: speech normal Motor Exam: strength 5/5 throughout Psych mental status grossly normal Assessment & Plan Assessment/Plan (1) Acute hypoxic respiratory failure: (2) COPD exacerbation: (3) Influenza A: (4) Type 2 diabetes mellitus: PLAN: Plan Patient is a 64-year-old male who presented [facility] ED on 01/01/2025 with worsening shortness of breath. 1. Acute hypoxic respiratory failure secondary to COPD exacerbation due to influenza A infection ? Influenza A positive on admit. History of COPD, not on home O2. Chest x-ray on admit unremarkable. Diffusely wheezy on exam on admit and requiring 6 L nasal cannula to maintain appropriate oxygen saturations. Low concern for secondary bacterial pneumonia. Continue treatment with IV steroids, scheduled DuoNebs and Tamiflu. Wean supplemental oxygen as able. Will plan to de-escalate to p.o. steroids and DuoNebs as needed tomorrow and complete O2 ambulatory testing tomorrow in preparation for discharge home. Suspect patient will need supplemental oxygen on discharge. Continue home inhalers. 2. Poorly controlled type 2 diabetes mellitus ? Blood glucose 500 on admit. A1c 11.6%. Was reportedly only on home metformin but on further discussion with patient and on 01/03, he is taking Lantus 60 units at night and Humalog 25 units with meals. Blood sugars have remained high while on steroids, increased to Lantus 30 units twice daily and Humalog 30 units plus sliding scale insulin for now, adjust as needed. Should be okay to resume home regimen on discharge. 3. Class III obesity ? BMI 58 on admit. Encouraged lifestyle modifications. Complicates hospital course, care and prognosis. 4. Hypertension ? Blood pressure elevated to the 160s to 180s during hospitalization. Increased doses of home Coreg and Lasix on 01/03 with some improvement. Continue home amlodipine, lisinopril and hydrochlorothiazide. IV hydralazine as needed ordered as well. 5. Tobacco use ? Nicotine patch ordered per patient request. Discussed cessation. 6. Suspected VERONICA ? Continue CPAP at night. DVT prophylaxis: Lovenox twice daily CODE STATUS: Full code, verified Expected disposition: Home, 1 to 2 days Total clinical time spent by myself addressing the patient's medical issues, reviewing all the data, and collaborating with patient's care team: 35 minutes. Charges/Coding Visit Charges Inpatient E&M: 02591 Subs Hosp L2
[2025-01-03 11:16] LABS: Anion Gap 8 (5-15); BUN 27 mg/dL (7-18); BUN/Creat Ratio 30.9 RATIO (10-20); Calcium,Total 9.3 mg/dL (8.5-10.1); Chloride 96 mmol/L (98-107); Creatinine, Serum 0.87 mg/dL (0.70-1.30); EST Glomerular Filtration Rate 94 mL/min (>60); Est Glom Filt Rate - Afr Amer 114 mL/min (>60); Estimated Creatinine Clearance 142.53 ml/min; Glucose 376 mg/dL (74-106); Potassium 3.7 mmol/L (3.5-5.1); Sodium Level 135 mmol/L (136-145)
[2025-01-03] MEDS: Insulin Lispro 100 UNIT/ML INSULN.PEN 30 UNIT SC ×2 (12:10→17:13)
[2025-01-03 12:12] LABS: Bedside Glucose 431 mg/dL (74-106)
--- NOTE | 2025-01-03 14:30 | CASEMGMT ---
FERNY AGUAYO into pt room, pt sitting on eob with and her son at bedside. Discussed with pt the potential need for home oxygen. Provided pt with a verbal list of local DME providers, pt chose [employer]. Discussed cost is $270 per month for concentrator and $35 per month per portable tank. Pt states this is affordable to him. Pt does have a pox at home as well as CPAP. FERNY AGUAYO to follow for oxygen. Pt denies any other homegoing needs at this time.
[2025-01-03] MEDS: Tamsulosin HCl 0.4 MG Capsule PO (17:20)
[2025-01-03 18:17] LABS: Bedside Glucose 248 mg/dL (74-106)
[2025-01-03] MEDS: 0.9% Saline Lock 10 ML Syringe IV (20:57)
[2025-01-03] MEDS: Insulin Glargine-YFGN 100 UNIT/ML Pen 30 UNIT SC (21:06)
[2025-01-03 21:30] LABS: Bedside Glucose 242 mg/dL (74-106)
[2025-01-04] VITALS (12 sets, daily range): BP systolic 162–189; BP diastolic 79–106; PULSE 72–99; RESP 18–20; TEMP 36.7–36.8; O2SAT 87–96
[2025-01-04] MEDS: Ipratropium/Albuterol Sulfate 3 ML AMPUL.NEB INHALATION ×3 (03:23→12:03)
[2025-01-04] MEDS: hydrALAZINE 20 MG/ML Vial 10 MG IV ×2 (05:03→11:02)
[2025-01-04] MEDS: 0.9% Saline Lock 10 ML Syringe IV (05:09)
[2025-01-04] MEDS: Insulin Lispro 100 UNIT/ML INSULN.PEN 30 UNIT SC ×2 (08:15→12:09)
[2025-01-04] MEDS: Insulin Lispro 100 UNIT/ML INSULN.PEN SC ×2 (08:15→12:09)
[2025-01-04] MEDS: Insulin Glargine-YFGN 100 UNIT/ML Pen 30 UNIT SC (08:16)
[2025-01-04] MEDS: Potassium Chloride Oral Tablet 10 MEQ PO (08:16)
[2025-01-04] MEDS: Carvedilol 25 MG Tablet PO (08:17)
[2025-01-04] MEDS: Furosemide 40 MG Tablet PO (08:17)
[2025-01-04] MEDS: predniSONE 20 MG Tablet 40 MG PO (08:18)
[2025-01-04] MEDS: Enoxaparin 40 MG/0.4 ML Syringe SC (08:19)
[2025-01-04] MEDS: HYDROCHLOROTHIAZIDE PO (08:20)
[2025-01-04] MEDS: LISINOPRIL PO (08:20)
[2025-01-04] MEDS: amLODIPine 10 MG Tablet PO (08:20)
[2025-01-04] MEDS: Oseltamivir Phosphate 75 MG Capsule PO (08:20)
[2025-01-04 08:42] LABS: Bedside Glucose 410 mg/dL (74-106)
--- NOTE | 2025-01-04 10:16 | CASEMGMT ---
Addendum entered by Alondra Stafford 01/04/25 14:05: Last meeting with pt was 1225, not 1247. Addendum entered by Alondra Stafford 01/04/25 14:05: 1247-FERNY AGUAYO into pt room, discussed homegoing oxygen with pt and what liter flow he qualified for as well as the liter flow for the cpap at HS. Pt verbalized understanding. Pt denies any further needs at this time. Pt expressed great satisfaction from this hospital stay. Addendum entered by Alondra Stafford 01/04/25 12:03: Respiratory updated that pt is using 6L bleed into pap. Updated hospitalist and updated order, sent to [facility] at this time. No order for overnight study. Original Note: Pt qualifies for home oxygen. Referral sent to [facility] via [facility] at this time. Updated hospitalist on pt O2 requirements for home.
--- NOTE | 2025-01-04 10:22 | DS.PCM_ITS ---
Providers Date of Admission: 01/01/25 Date of Discharge: 01/04/25 Primary Care Physician: Dr. Austyn Mcdonough DO Reason For Visit: COPD EXACERBATION Diagnosis Discharge Diagnosis (1) Acute hypoxic respiratory failure: Status: Acute Code(s): J96.01 - Acute respiratory failure with hypoxia (2) COPD exacerbation: Status: Chronic Code(s): J44.1 - Chronic obstructive pulmonary disease with (acute) exacerbation (3) Influenza A: Status: Acute Code(s): J10.1 - Influenza due to other identified influenza virus with other respiratory manifestations (4) Type 2 diabetes mellitus: Status: Acute Code(s): E11.9 - Type 2 diabetes mellitus without complications Medications at Discharge Home Medications alfuzosin 10 mg tablet,extended release 24 hr 10 mg PO QHS 01/01/25 amlodipine 5 mg tablet 5 mg PO DAILY 01/01/25 carvedilol 6.25 mg tablet 6.25 mg PO BID 01/01/25 fluticasone fur. 100 mcg-umeclid 62.5 mcg-vilant 25 mcg inhalat.powder (Trelegy Ellipta) 1 inh inhalation DAILY 01/01/25 furosemide 20 mg tablet 20 mg PO DAILY 01/01/25 lisinopril 20 mg-hydrochlorothiazide 12.5 mg tablet 1 tab PO BID 01/01/25 metformin 1,000 mg tablet 1,000 mg PO BID 01/01/25 potassium 20 mg chewable tablet 10 mg PO DAILY 01/01/25 ipratropium 0.5 mg-albuterol 3 mg (2.5 mg base)/3 mL nebulization soln 3 ml inhalation Q6H PRN shortness of breath or wheezing #90 mL 01/04/25 oseltamivir 75 mg capsule 75 mg PO BID 2 days #4 caps 01/04/25 prednisone 10 mg tablet See Taper PO DAILY 12 days #30 tabs 01/04/25 Hospital Course Operations None Procedures - (Chest x-ray) Summary of Care Provided Minutes Spent on Discharge: 35 Hospital Course: Patient is a 64-year-old male who presented [facility] ED on 01/01/2025 with worsening shortness of breath. Hospital course as noted below. Patient discharged home in stable condition on 01/04. 1. Acute hypoxic respiratory failure secondary to COPD exacerbation due to influenza A infection ? Influenza A positive on admit. History of COPD, not on home O2. Chest x-ray on admit unremarkable. Diffusely wheezy on exam on admit and requiring 6 L nasal cannula to maintain appropriate oxygen saturations. Low concern for secondary bacterial pneumonia. Treated with IV steroids, scheduled DuoNebs and Tamiflu while inpatient with improvement. Completed oxygen testing on day of discharge and did require 4 L with exertion but no oxygen at rest. Oxygen prescription sent. Discharged on short steroid taper and Tamiflu to complete course. Continue home inhalers on discharge. 2. Poorly controlled type 2 diabetes mellitus ? Blood glucose 500 on admit. A1c 11.6%. Was reportedly only on home metformin but on further discussion with patient and on 01/03, he is taking Lantus 60 units at night and Humalog 25 units with meals. Blood sugars remained high while inpatient while on steroids but did improve with increased insulin dosing. Recommend restarting home insulin dosing on discharge with sliding scale coverage as needed especially while on steroids. 3. Class III obesity ? BMI 58 on admit. Encouraged lifestyle modifications. Complicated hospital course, care and prognosis. 4. Hypertension ? Blood pressure elevated to the 160s to 180s during hospitalization. Increased home doses of Coreg and Lasix during hospitalization with some improvement. However, suspect blood pressures may have been elevated due to frequent DuoNeb treatments and steroids. Will discharge on home medications at home dosing. 5. Tobacco use ? Nicotine patch utilized inpatient per patient request. Discussed cessation on discharge. 6. Suspected VERONICA ? Continue CPAP at night. Total clinical time spent by myself addressing the patient's medical issues, reviewing all the data, and collaborating with patient's care team: 35 minutes. Physical Exam Const alert, oriented x3 and no apparent distress Constitutional Narrative: Upper middle-aged male, class III obesity, energy improved, sitting up at edge of bed comfortably, conversing normally, in no acute distress. Improved from admission. General Appearance: cooperative and comfortable HEENT normocephalic, head/scalp atraumatic, hearing grossly normal bilaterally, nasal mucous membranes and turbinates normal and moist oral mucous membranes Eyes PERRL, EOMs intact bilaterally and conjunctivae normal Neck full ROM Chest inspection of chest normal Resp normal respiratory effort and no use of accessory muscles Resp Narrative: Breathing comfortably on 2 L nasal cannula at rest. Mild upper airway wheezing noted bilaterally but improved from admission and breath sounds much improved. No crackles noted. Cardio regular rate, regular rhythm, no murmurs and peripheral pulses 2+ throughout GI normal to inspection, nondistended, normoactive bowel sounds, soft to palpation, non-tender and non-distended Back/Spine normal ROM Extremity normal to inspection, full ROM and no pedal edema Skin no rashes or lesions noted Neuro moves all extremities and no focal motor deficits Speech: speech normal Motor Exam: strength 5/5 throughout Psych mental status grossly normal Weight / BMI Weight Weight: 180.1 kg Body Mass Index (BMI) 58.6 ABG / Lab / Microbiology Data 01/03/25 05:10 01/03/25 05:10 Laboratory: Laboratory Results - last 24 hr 01/03/25 05:10: Sodium 135 L, Potassium 3.7, Chloride 96 L, Carbon Dioxide 31.0, Anion Gap 8, BUN 27 H, Creatinine 0.87, Estim Creat Clear Calc 142.53, Est GFR (MDRD) Af Amer 114, Est GFR (MDRD) Non-Af 94, BUN/Creatinine Ratio 30.9 H, G lucose 376 H, Calcium 9.3 01/03/25 11:53: POC Glucose 431 H 01/03/25 17:11: POC Glucose 248 H 01/03/25 20:52: POC Glucose 242 H 01/04/25 08:14: POC Glucose 410 H Microbiology: Microbiology 01/01/25 04:50 Mucosa - Nose SARS-CoV-2, Influenza & RSV (PCR) - Final Influenzae A D/C Instructions DC O2, CPAP, BIPAP Needs Home O2 Discharge instructions: Yes Type of respiratory needs?: Oxygen Oxygen frequency: With Ambulation Oxygen liters per minute during Ambulation: 4 DC home with Oxygen: Yes Home O2 MD Review: I have reviewed the oxygen testing, and the patient qualifies for home oxygen equipment and portability. The patient is mobile in the home and the community. Meaningful Use Info Meaningful Use Meaningful Use Diagnoses (Choose all that apply): None applicable Ischemic Stroke Statin Dosing Therapy Reference: STATIN DOSE THERAPY REFERENCE: * Patients > 75 years receive moderate or high dose statin therapy. * Patients 75 years or YOUNGER should receive HIGH intensity statin dose unless contraindicated. You will be required to document reason for non-treatment if statin daily dose does not meet guidelines. HIGH DOSE STATIN THERAPY DAILY Atorvastatin > than or = to 40 mg Rosuvastatin > than or = to 20 mg Amlodipine + Atorvastatin > than or = to 2.5/40 mg Ezetimibe + Simvastatin 10/80 mg Simvastatin 80mg Discharge Plan Admission Admit Date/Time: 01/01/25 07:27 Primary Reason for Your Visit: Shortness of breath Attending Provider: Kehinde Garibay Primary Care Provider: Austyn Mcdonough Consulting Providers: Enrique Metcalf Instructions Additional Instructions / Restrictions: Complete steroid taper as noted below. Complete 2 more days of Tamiflu. Use your home inhalers and the nebulizer solution below as needed. Continue your home blood pressure medications and home insulin. Follow-up with your primary care doctor as needed. Discharge Orders/Prescriptions Prescriptions: New oseltamivir 75 mg Capsule 75 mg PO BID 2 Days Qty: 4 0RF prednisone 10 mg tablet See Taper PO DAILY 12 Days Qty: 30 0RF Taper: Prednisone Taper 40 mg WITH BREAKFAST for 3 Days and 0 Hour 30 mg WITH BREAKFAST for 3 Days and 0 Hour 20 mg WITH BREAKFAST for 3 Days and 0 Hour 10 mg WITH BREAKFAST for 3 Days and 0 Hour ipratropium-albuterol 0.5 mg-3 mg(2.5 mg base)/3 mL solution for nebulization 3 ml inhalation Q6H PRN (Reason: shortness of breath or wheezing) Qty: 90 0RF Continued carvedilol 6.25 mg tablet 6.25 mg PO BID amlodipine 5 mg tablet 5 mg PO DAILY furosemide 20 mg tablet 20 mg PO DAILY potassium 20 mg tablet,chewable 10 mg PO DAILY alfuzosin 10 mg tablet extended release 24 hr 10 mg PO QHS metformin 1,000 mg tablet 1,000 mg PO BID lisinopril-hydrochlorothiazide 20-12.5 mg tablet 1 tab PO BID Trelegy Ellipta 100-62.5-25 mcg blister with device 1 inh inhalation DAILY Referrals / Follow Up: Austyn Mcdonough DO [Primary Care Provider] - Disposition Disposition (needs filled in before D/C Order can be placed): Home, Self Care Charges/Coding Visit Charges Inpatient E&M: 63975 Disch Hosp >30min
--- NOTE | 2025-01-04 10:22 | PCM.HOSP.N ---
Hospitalist Note I have reviewed the oxygen testing, and this patient qualifies for the home equipment and portability. The patient is mobile in the home and the community.
[2025-01-04 11:52] LABS: Bedside Glucose 374 mg/dL (74-106)
== END 2025-01-04 13:22 | disposition home or self-care (01) | DRG 193 ==
LOC: ED 07:34 → MS3 07:37
PROVIDERS: Internal Medicine; Emergency Provider Emergency Medicine; PCP Student in an Organized Health Care Education/Training Program; Visit Provider Hospitalist
DX: J10.1 Influenza due to other identified influenza virus with other respiratory manifestations (principal); J96.01 Acute respiratory failure with hypoxia; J44.1 Chronic obstructive pulmonary disease with (acute) exacerbation; J44.0 Chronic obstructive pulmonary disease with (acute) lower respiratory infection; Z68.43 Body mass index [BMI] 50.0-59.9, adult; E11.65 Type 2 diabetes mellitus with hyperglycemia; I10 Essential (primary) hypertension; F17.210 Nicotine dependence, cigarettes, uncomplicated; G47.33 Obstructive sleep apnea (adult) (pediatric); Z79.4 Long term (current) use of insulin; E66.813 Obesity, class 3; Z79.51 Long term (current) use of inhaled steroids; Z79.52 Long term (current) use of systemic steroids; Z79.84 Long term (current) use of oral hypoglycemic drugs; R05.9 Cough, unspecified; Z20.828 Contact with and (suspected) exposure to other viral communicable diseases; Z79.899 Other long term (current) drug therapy
CPT/HCPCS: 36415; 71045; 80048; 82947; 82962; 83036; 83735; 83880; 85025; 85027; 87631; 94640; 94668; 99285; 99406; A4216